=== PATIENT | female | born 1985 | race Two or more races ===

== ENCOUNTER 2019-03-23 18:30 | Observation (INO) | payer OTHER ==
[~2019-03-23] VITALS: Ht 149.9 cm; Wt 93.9 kg
[2019-03-23] MEDS ORDERED: FLUCONAZOLE 150 MG TABLET PO ONE (20:00)
[2019-03-23 20:17] VITALS: BP 113/72
[2019-03-23] MEDS ORDERED: PREN1TAB26 PO (20:20)
== END 2019-03-23 21:30 | disposition home or self-care (01) ==
LOC: 4S 18:48
PROVIDERS: ADMIT Obstetrics & Gynecology; ATTEND Obstetrics & Gynecology
DX: O36.8330 Maternal care for abnormalities of the fetal heart rate or rhythm, third trimester, not applicable or unspecified (principal); Z3A.36 36 weeks gestation of pregnancy
CPT/HCPCS: 81002; G0378

== ENCOUNTER 2019-03-26 16:05 | Observation (INO) | payer OTHER ==
[~2019-03-26] VITALS: Ht 149.9 cm; Wt 94.6 kg
[~2019-03-26 16:05] MED LIST: PREN1TAB26 PO
[2019-03-26] MEDS ORDERED: CALC500T7 PO (16:57)
[2019-03-26 16:59] VITALS: BP 105/58
== END 2019-03-26 18:30 | disposition home or self-care (01) ==
LOC: 4S 16:05
PROVIDERS: ADMIT Obstetrics & Gynecology; ATTEND Obstetrics & Gynecology
DX: O36.8330 Maternal care for abnormalities of the fetal heart rate or rhythm, third trimester, not applicable or unspecified (principal); Z3A.36 36 weeks gestation of pregnancy
CPT/HCPCS: 81002; G0378

== ENCOUNTER 2019-04-02 15:21 | Observation (INO) | payer OTHER ==
[~2019-04-02] VITALS: Ht 149.9 cm; Wt 94.8 kg
[~2019-04-02 15:21] MED LIST changes: +CALC500T7 PO
[2019-04-02] MEDS ORDERED: tums PO (16:45)
[2019-04-02] MEDS ORDERED: PREN-217 PO (16:45)
[2019-04-02 16:46] VITALS: BP 103/66
== END 2019-04-02 16:30 | disposition home or self-care (01) ==
LOC: 4S 15:21
PROVIDERS: ADMIT Obstetrics & Gynecology; ATTEND Obstetrics & Gynecology
DX: Z34.83 Encounter for supervision of other normal pregnancy, third trimester (principal); Z3A.37 37 weeks gestation of pregnancy

== ENCOUNTER 2019-04-04 02:35 | Inpatient (IN) | payer OTHER ==
[~2019-04-04] VITALS: Ht 152.4 cm; Wt 93.9 kg
[~2019-04-04 02:35] MED LIST changes: +PREN-217 PO; +tums PO
[2019-04-04] MEDS ORDERED: RINGERS SOLUTION,LACTATED 1,000 ML IV ONE ×3 (02:52→13:22)
[2019-04-04] MEDS ORDERED: OXYTOCIN 30 UNITS/LACT RINGERS 500 ML IV ONE ×2 (02:52→13:09)
[2019-04-04] MEDS ORDERED: LIDOCAINE/PF 1% 30 ML VIAL INJ PRN (03:00)
[2019-04-04] MEDS ORDERED: CLINDAMYCIN 900 MG/D5% WATER 50 ML IV SCH (03:00)
[2019-04-04] MEDS ORDERED: CITRIC ACID/SODIUM CITRATE 30 ML SOLUTION UDCUP PO PRN (03:00)
[2019-04-04] MEDS ORDERED: METOCLOPRAMIDE HCL 5 MG/ML 2 ML VIAL IVP PRN (03:00)
[2019-04-04] MEDS ORDERED: OXYTOCIN 30 UNITS/LACT RINGERS 500 ML IV PRN (04:05)
[2019-04-04 04:06] LABS: EOSINOPHILS % (AUTO) 2.8 % (1.0-6.0); HEMATOCRIT 38.5 % (36-46); HEMOGLOBIN 13.1 g/dL (12.0-16.0); LYMPHOCYTES # (AUTO) 2.3 K/uL (1.0-4.8); MEAN CORPUSCULAR HGB CONC 33.9 G/dL (31.0-37.0); MEAN CORPUSCULAR VOLUME 97 fL (80-100); MONOCYTES # (AUTO) 0.8 K/uL (0.1-1.0); MONOCYTES % (AUTO) 7.8 % (2.0-9.0); NEUTROPHILS # (AUTO) 6.2 K/uL (1.8-7.7); NEUTROPHILS % (AUTO) 64.4 % (40.0-70.0); PLATELET COUNT (AUTO)-OB 228 K/uL (150-450); RED BLOOD CELL COUNT(AUTO) 3.97 MIL/uL (4.00-5.20)
[2019-04-04] MEDS: RINGERS SOLUTION,LACTATED 1,000 ML IV SCH ×3 (04:17→14:38)
[2019-04-04 04:49] VITALS: BP 109/67
[2019-04-04] MEDS: FentaNYL CITRATE-PF 100 MCG/2 ML VIAL IVP PRN ×3 (06:07→07:40)
[2019-04-04] MEDS ORDERED: AMPICILLIN SODIUM 1 GM/NS 50 ML IV SCH (07:00)
[2019-04-04] MEDS ORDERED: ROPIVACAINE HCL/PF 0.2% 100 ML ED ONE (08:14)
[2019-04-04] MEDS ORDERED: ROPIVACAINE HCL/PF 0.2% 100 ML ED PRN (08:45)
[2019-04-04] MEDS ORDERED: DiphenhydrAMINE HCL 50 MG/ML VIAL IVP PRN ×2 (08:45→12:30)
[2019-04-04] MEDS ORDERED: ONDANSETRON HCL 4 MG/2 ML VIAL IVP PRN ×2 (08:45→12:30)
[2019-04-04] MEDS ORDERED: MIDAZOLAM HCL 2 MG/2 ML VIAL ONE (11:47)
[2019-04-04] MEDS ORDERED: MORPHINE SULFATE/PF 1 MG/ML 10 ML AMP ONE (11:47)
[2019-04-04] MEDS ORDERED: GUM MASTIC/STORAX/MSAL/ALCOHOL LIQUID 0.67 ML VIAL TP ONE (12:26)
[2019-04-04] MEDS ORDERED: HYDROmorphone 2 MG/ML SYRINGE IVP PRN (12:30)
[2019-04-04] MEDS ORDERED: ACETAMINOPHEN 1000 MG/ISO-OSM 100 ML IV ONE (12:30)
[2019-04-04] MEDS ORDERED: OxyCODONE HCL/ACETAMINOPHEN 5-325 MG TABLET PO PRN ×2 (12:30→13:15)
[2019-04-04] MEDS ORDERED: MEPERIDINE-PF 25 MG/ML VIAL IVP PRN (12:30)
[2019-04-04] MEDS ORDERED: FentaNYL CITRATE-PF 100 MCG/2 ML VIAL IVP PRN ×2 (12:30)
[2019-04-04] MEDS ORDERED: NALOXONE HCL 0.4 MG/ML VIAL IVP PRN (12:30)
[2019-04-04] MEDS ORDERED: LANOLIN 7 GM OINTMENT TP PRN (13:15)
[2019-04-04] MEDS ORDERED: LIDOCAINE/PF 2% 5 ML VIAL IM ONE (16:10)
[2019-04-04] MEDS ORDERED: OXYTOCIN 10 UNITS/ML VIAL IM ONE (16:10)
[2019-04-04] MEDS ORDERED: KETOROLAC TROMETHAMINE 60 MG/2 ML VIAL IM ONE (16:10)
[2019-04-04] MEDS ORDERED: PROPOFOL 1% 20 ML VIAL IVP ONE (16:10)
[2019-04-04] MEDS ORDERED: DEXAMETHASONE SOD PHOS 4 MG/ML VIAL IVP ONE (16:10)
[2019-04-04 16:26] LABS: RUBELLA SCREEN (IGG) IMMUNE (IMMUNE)
[2019-04-04] MEDS ORDERED: OXYGEN THERAPY IH SCH ×2 (20:00)
[2019-04-04] MEDS: KETOROLAC TROMETHAMINE 30 MG/ML VIAL IVP SCH (20:51)
[2019-04-05] MEDS: RINGERS SOLUTION,LACTATED 1,000 ML IV SCH (00:36)
[2019-04-05] MEDS: KETOROLAC TROMETHAMINE 30 MG/ML VIAL IVP SCH ×2 (02:36→08:45)
[2019-04-05 05:43] LABS: BASOPHILS % (AUTO) 0.8 % (0.0-2.0); EOSINOPHILS % (AUTO) 0.4 % (1.0-6.0); HEMATOCRIT 30.6 % (36-46); HEMOGLOBIN 10.3 g/dL (12.0-16.0); LYMPHOCYTES # (AUTO) 2.5 K/uL (1.0-4.8); LYMPHOCYTES % (AUTO) 18.5 % (22.0-44.0); MEAN CORPUSCULAR HEMOGLOBIN 32.9 pg (26.0-34.0); MEAN CORPUSCULAR HGB CONC 33.6 G/dL (31.0-37.0); MEAN CORPUSCULAR VOLUME 98 fL (80-100); MONOCYTES # (AUTO) 0.8 K/uL (0.1-1.0); MONOCYTES % (AUTO) 6.3 % (2.0-9.0); NEUTROPHILS # (AUTO) 9.9 K/uL (1.8-7.7); PLATELET COUNT (AUTO)-OB 204 K/uL (150-450); RED BLOOD CELL COUNT(AUTO) 3.13 MIL/uL (4.00-5.20); RED CELL DISTRIBUTION WIDTH 13.6 % (11.5-14.5)
[2019-04-05] MEDS: MAGNESIUM HYDROXIDE SUSPENSION 30 ML UDCUP PO SCH ×2 (08:45→20:44)
[2019-04-05] MEDS: OxyCODONE HCL/ACETAMINOPHEN 5-325 MG TABLET PO PRN ×2 (15:37→21:38)
[2019-04-05] MEDS: IBUPROFEN 800 MG TABLET PO PRN ×2 (15:37→21:38)
[2019-04-06] MEDS: MAGNESIUM HYDROXIDE SUSPENSION 30 ML UDCUP PO SCH (07:58)
[2019-04-06] MEDS: IBUPROFEN 800 MG TABLET PO PRN (07:59)
[2019-04-06] MEDS: OxyCODONE HCL/ACETAMINOPHEN 5-325 MG TABLET PO PRN (08:38)
[2019-04-06] MEDS ORDERED: PERCT PO (08:47)
[2019-04-06] MEDS ORDERED: IBUP-2071 PO (08:48)
[2019-04-06] MEDS ORDERED: DOCU-275 PO (08:49)
[2019-04-06] MEDS ORDERED: FERR-89 PO (08:49)
== END 2019-04-06 10:20 | disposition home or self-care (01) | DRG 540 ==
LOC: 4S 02:35 → PREOBSVTOIN 04-23 02:49
PROVIDERS: ADMIT Obstetrics & Gynecology; ATTEND Obstetrics & Gynecology
PROC: 10D00Z1 Extraction of Products of Conception, Low, Open Approach (ICD-10-PCS; principal; 2019-04-04)
DX: O62.0 Primary inadequate contractions (principal); O62.1 Secondary uterine inertia; O69.82X0 Labor and delivery complicated by other cord entanglement, without compression, not applicable or unspecified; Z37.0 Single live birth; Z3A.37 37 weeks gestation of pregnancy
CPT/HCPCS: 85461; 86592; 86762; 86850; 86870; 86900; 86901; 87340; J0131; J0690; J1100; J1200; J1885; J2250; J2590; J2704; J2765; J2795; J3010; J3490; J7120